=== PATIENT | male | born 1950 | race Two or more races ===

== ENCOUNTER 2023-02-23 16:41 | Inpatient (IN) | payer OTHER ==
[~2023-02-23] VITALS: Ht 170.2 cm; Wt 93.2 kg
[2023-02-24] VITALS (9 sets, daily range): BP systolic 118–151; BP diastolic 51–72; PULSE 62–87; RESP 16–20; TEMP 97.7–98.5; O2SAT 94–96
[2023-02-24] MEDS ORDERED: NITROGLYCERIN 0.4 MG SL TAB SL PRN (00:30)
[2023-02-24] MEDS ORDERED: SODIUM CHLORIDE 0.9% 1,000 ML IV SCH (00:30)
[2023-02-24] MEDS ORDERED: DEXTROSE (50%) 50ML SYRG IV PRN (00:30)
[2023-02-24] MEDS ORDERED: MORPHINE SULFATE INJ 2 MG/ml SYRG IV PRN (00:30)
[2023-02-24] MEDS ORDERED: hydrALAZINE HCL 20 MG/ML VL IV PRN (00:30)
[2023-02-24] MEDS: PIPERACILLIN-TAZOB 3.375GM 100 ML IV SCH ×3 (04:47→21:25)
[2023-02-24 05:23] LABS: Basophils # (auto) 0 10 ^3/uL (0-0.2); Basophils % (auto) 0.4 % (0.0-2.0); Eosinophils # (auto) 0 10 ^3/uL (0-0.8); Eosinophils % (auto) 0.4 % (0.0-7.0); Hematocrit 31.3 % (41.0-53.0); Hemoglobin 10.5 g/dL (13.5-17.5); Lymphocytes # (auto) 1.1 10 ^3/uL (0.4-5.4); Lymphocytes % (auto) 10.2 % (10.0-50.0); Mean Corpuscular Hemoglobin 30.9 pg (28.0-32.0); Mean Corpuscular Hgb Conc. 33.5 g/dL (32.0-36.0); Mean Corpuscular Volume 92.3 fL (80.0-100.0); Monocytes % (auto) 9.3 % (0.0-12.0); Neutrophils # (auto) 8.5 10 ^3/uL (1.6-8.6); Neutrophils % (auto) 79.7 % (37.0-80.0); Red Blood Cells 3.39 10^6/uL (4.5-5.90); Red Cell Distribution Width 14.2 % (11.8-14.3); White Blood Cell 10.6 10^3/uL (4.4-10.8)
[2023-02-24 05:31] LABS: Chloride 96 mmol/L (98-107); Potassium 3.5 mmol/L (3.5-5.1); Sodium 130 mmol/L (136-145)
[2023-02-24 05:32] LABS: Anion Gap 8 (5-15); Calcium 8.4 mg/dL (8.5-10.1); Carbon Dioxide 26 mmol/L (20-30)
[2023-02-24 05:37] LABS: BUN/Creatinine Ratio 20.5 (10.0-20.0); Blood Urea Nitrogen 16 mg/dL (9-23); Glucose 183 mg/dL (74-106)
[2023-02-24] MEDS: ACCU-CHEK COMFORT CURVE STRIP VI SCH ×4 (06:51→21:26)
[2023-02-24] MEDS: InsuLIN REG 1unit/0.01ml Soln (100units/ml) SC SCH ×4 (06:55→21:30)
[2023-02-24] MEDS ORDERED: PANTOPRAZOLE 40 MG/10 ML VIAL INJ IV SCH (10:00)
[2023-02-24] MEDS: HEPARIN SODIUM (PORCINE) 5000 UNITS/ML 1ML VIAL SC SCH ×2 (10:58→21:26)
[2023-02-24] MEDS: POTASSIUM EFFERVESENT TAB 25 MEQ PO SCH (11:45)
[2023-02-24] MEDS: FUROSEMIDE 40 MG/4 ML VIAL IV SCH (11:45)
[2023-02-24 19:52] LABS: Urine Bacteria FEW /hpf (None Seen); Urine Blood TRACE /uL (Negative); Urine Budding Yeast OCCASIONAL /hpf (None Seen); Urine Clarity HAZY (Clear); Urine Color Yellow (Yellow); Urine Protein, UAD TRACE (Negative); Urine Specific Gravity 1.012 (1.001-1.035); Urine WBC 237 /hpf (0 - 3)
[2023-02-24 19:57] LABS: Creatinine, Urine 33.97 mg/dL (30.0-125.0)
[2023-02-24] MEDS: BACLOFEN 10 MG TAB PO PRN (20:11)
[2023-02-24] MEDS: ACETAMINOPHEN 325 MG TAB PO PRN (23:22)
[2023-02-25] VITALS (7 sets, daily range): BP systolic 124–147; BP diastolic 52–81; PULSE 60–73; RESP 18–96; TEMP 97.1–98.4; O2SAT 96–98
[2023-02-25] MEDS: BACLOFEN 10 MG TAB PO PRN ×2 (05:15→21:24)
[2023-02-25] MEDS: PIPERACILLIN-TAZOB 3.375GM 100 ML IV SCH ×3 (05:15→21:19)
[2023-02-25 05:31] LABS: Basophils # (auto) 0 10 ^3/uL (0-0.2); Basophils % (auto) 0.2 % (0.0-2.0); Eosinophils # (auto) 0.1 10 ^3/uL (0-0.8); Eosinophils % (auto) 0.8 % (0.0-7.0); Hematocrit 31.9 % (41.0-53.0); Hemoglobin 10.7 g/dL (13.5-17.5); Lymphocytes # (auto) 1.5 10 ^3/uL (0.4-5.4); Lymphocytes % (auto) 16.7 % (10.0-50.0); Mean Corpuscular Hemoglobin 31.1 pg (28.0-32.0); Mean Corpuscular Hgb Conc. 33.5 g/dL (32.0-36.0); Mean Corpuscular Volume 92.8 fL (80.0-100.0); Monocytes # (auto) 0.7 10 ^3/uL (0-1.3); Monocytes % (auto) 8.3 % (0.0-12.0); Neutrophils # (auto) 6.5 10 ^3/uL (1.6-8.6); Red Blood Cells 3.43 10^6/uL (4.5-5.90); Red Cell Distribution Width 14.4 % (11.8-14.3); White Blood Cell 8.7 10^3/uL (4.4-10.8)
[2023-02-25 05:48] LABS: Anion Gap 4 (5-15); Carbon Dioxide 29 mmol/L (20-30); Chloride 98 mmol/L (98-107); Potassium 3.2 mmol/L (3.5-5.1); Sodium 131 mmol/L (136-145)
[2023-02-25 05:49] LABS: Calcium 8.4 mg/dL (8.7-10.4)
[2023-02-25 05:53] LABS: Glucose 181 mg/dL (74-106)
[2023-02-25 05:54] LABS: BUN/Creatinine Ratio 22.2 (10.0-20.0); Blood Urea Nitrogen 18 mg/dL (9-23)
[2023-02-25] MEDS: ACCU-CHEK COMFORT CURVE STRIP VI SCH ×4 (06:09→21:24)
[2023-02-25] MEDS: InsuLIN REG 1unit/0.01ml Soln (100units/ml) SC SCH ×4 (06:11→21:35)
[2023-02-25] MEDS: POTASSIUM EFFERVESENT TAB 25 MEQ PO SCH (09:28)
[2023-02-25] MEDS: FUROSEMIDE 40 MG/4 ML VIAL IV SCH (09:29)
[2023-02-25] MEDS: HEPARIN SODIUM (PORCINE) 5000 UNITS/ML 1ML VIAL SC SCH ×2 (09:39→21:21)
[2023-02-25] MEDS ORDERED: POTASSIUM CHL 20 Meq TABLET PO ONE (12:30)
[2023-02-25] MEDS ORDERED: POTASSIUM EFFERVESENT TAB 25 MEQ PO ONE (13:15)
[2023-02-25] MEDS ORDERED: ERTAPENEM SOD INJ 1 GM in SODIUM CHL 0.9% 50 ML IV SCH (16:00)
[2023-02-25] MEDS: UREA 15gm PO Powder PKG PO SCH (21:24)
[2023-02-25] MEDS: ACETAMINOPHEN 325 MG TAB PO PRN (21:36)
[2023-02-26] MEDS: ACETAMINOPHEN 325 MG TAB PO PRN ×3 (01:40→16:49)
[2023-02-26 06:04] LABS: Basophils # (auto) 0 10 ^3/uL (0-0.2); Basophils % (auto) 0.4 % (0.0-2.0); Eosinophils # (auto) 0.1 10 ^3/uL (0-0.8); Eosinophils % (auto) 1.6 % (0.0-7.0); Hematocrit 32.4 % (41.0-53.0); Hemoglobin 10.7 g/dL (13.5-17.5); Lymphocytes # (auto) 1.6 10 ^3/uL (0.4-5.4); Lymphocytes % (auto) 21.3 % (10.0-50.0); Mean Corpuscular Hemoglobin 30.6 pg (28.0-32.0); Mean Corpuscular Hgb Conc. 33.2 g/dL (32.0-36.0); Mean Corpuscular Volume 92.1 fL (80.0-100.0); Monocytes # (auto) 0.7 10 ^3/uL (0-1.3); Monocytes % (auto) 8.5 % (0.0-12.0); Neutrophils # (auto) 5.3 10 ^3/uL (1.6-8.6); Neutrophils % (auto) 68.2 % (37.0-80.0); Red Blood Cells 3.51 10^6/uL (4.5-5.90); Red Cell Distribution Width 14.4 % (11.8-14.3); White Blood Cell 7.8 10^3/uL (4.4-10.8)
[2023-02-26] MEDS: ACCU-CHEK COMFORT CURVE STRIP VI SCH ×4 (06:11→21:25)
[2023-02-26] MEDS: PIPERACILLIN-TAZOB 3.375GM 100 ML IV SCH (06:11)
[2023-02-26] MEDS: InsuLIN REG 1unit/0.01ml Soln (100units/ml) SC SCH ×4 (06:12→21:26)
[2023-02-26 06:15] LABS: Anion Gap 6 (5-15); Calcium 8.5 mg/dL (8.7-10.4); Carbon Dioxide 29 mmol/L (20-30); Chloride 96 mmol/L (98-107); Potassium 3.5 mmol/L (3.5-5.1); Sodium 131 mmol/L (136-145)
[2023-02-26 06:21] LABS: BUN/Creatinine Ratio 41.9 (10.0-20.0); Glucose 157 mg/dL (74-106)
[2023-02-26 06:23] LABS: Blood Urea Nitrogen 31 mg/dL (9-23)
[2023-02-26 07:30] VITALS: PULSE 64; PULSE 72
[2023-02-26 09:00] VITALS: BP 117/68; PULSE 76; RESP 20; TEMP 97.5; O2SAT 96
[2023-02-26] MEDS: BACLOFEN 10 MG TAB PO PRN ×2 (09:16→16:49)
[2023-02-26] MEDS: UREA 15gm PO Powder PKG PO SCH ×3 (09:17→21:25)
[2023-02-26] MEDS: POTASSIUM EFFERVESENT TAB 25 MEQ PO SCH (09:18)
[2023-02-26] MEDS: HEPARIN SODIUM (PORCINE) 5000 UNITS/ML 1ML VIAL SC SCH ×2 (09:30→21:25)
[2023-02-26] MEDS ORDERED: FUROSEMIDE 40 MG TAB PO SCH (10:00)
[2023-02-26 13:00] VITALS: BP 114/41; PULSE 66; RESP 20; TEMP 98.1; O2SAT 97
[2023-02-26 17:00] VITALS: BP 113/63; PULSE 76; RESP 18; TEMP 98; O2SAT 96
[2023-02-26 17:59] VITALS: BP 117/68; TEMP 36.7
[2023-02-26] MEDS: MEROPENEM 1GM IVPB 100 ML IV SCH ×2 (18:11→21:15)
[2023-02-26 20:00] VITALS: PULSE 67; RESP 20
== END 2023-02-26 23:57 | DRG 71 ==
LOC: TELE-EAST 23:45 → UNDOADMIN 23:45 → TELE-EAST 02-24 00:43
PROVIDERS: ADMIT Internal Medicine; ATTEND Hospitalist
PROC: 05HB33Z Insertion of Infusion Device into Right Basilic Vein, Percutaneous Approach (ICD-10-PCS; principal; 2023-02-25)
PROC: B54MZZA Ultrasonography of Right Upper Extremity Veins, Guidance (ICD-10-PCS; 2023-02-25)
DX: G93.41 Metabolic encephalopathy (principal); E22.2 Syndrome of inappropriate secretion of antidiuretic hormone; N39.0 Urinary tract infection, site not specified; R78.81 Bacteremia; Z16.12 Extended spectrum beta lactamase (ESBL) resistance; I10 Essential (primary) hypertension; E11.65 Type 2 diabetes mellitus with hyperglycemia; E03.9 Hypothyroidism, unspecified; B96.20 Unspecified Escherichia coli [E. coli] as the cause of diseases classified elsewhere; R31.9 Hematuria, unspecified; D64.9 Anemia, unspecified; Z83.3 Family history of diabetes mellitus; M54.9 Dorsalgia, unspecified
CPT/HCPCS: 36415; 71045; 80048; 81001; 82570; 82962; 83880; 83935; 84300; 84550; 85025; 87040; 87081; 87086; 93306; 97163; C9113; G0378; J1815; J2185; J2543